=== PATIENT | male | born 1975 | race Caucasian/White ===

== ENCOUNTER 2017-11-04 14:00 | Observation (INO) | payer OTHER, SELFPAY ==
[2017-11-04] VITALS (9 sets, daily range): BP systolic 108–137; BP diastolic 70–86; PULSE 60–80; RESP 14–16; TEMP 36.4–37; O2SAT 95–100; BMI 21.9
--- NOTE | 2017-11-04 14:18 | CT_ITS ---
STUDY: CT BRAIN WITHOUT CONTRAST REASON FOR EXAM: Male, 42 years old. Syncope RADIATION DOSAGE (If Supplied By Facility): CTDIvol = ( 44.99 ) mGy, DLP = ( 812.98 ) mGycm TECHNIQUE: Transaxial CT imaging of the brain was performed without administration of intravenous contrast material. Individualized dose optimization techniques were used for this CT. COMPARISON: 12/25/2012 FINDINGS: There is no acute bleed or infarct. There are normal white matter tracts. The ventricles are normal in configuration. There is no hydrocephalus. The visualized paranasal sinuses are clear. The mastoid air cells are well aerated. There is no skull fracture. CT/Brain/Head without Contrast IMPRESSION: No acute intracranial abnormality. Electronically Signed: Boyd Steiner, at 15:00 EST Tel , Service support ,
--- NOTE | 2017-11-04 14:18 | RAD_ITS ---
STUDY: X-RAY CHEST REASON FOR EXAM: Male, 42 years old. Syncope TECHNIQUE: Frontal view of the chest COMPARISON: 12/25/2012 FINDINGS: The lungs are clear. There are no pleural effusions. There is no pneumothorax. The heart is normal in size. There is a pacemaker in place. The visualized osseous structures are within normal limits. RAD/Chest 1 View (Portable) IMPRESSION: No acute thoracic pathology. Electronically Signed: Boyd Steiner, at 15:41 EST Tel , Service support ,
--- NOTE | 2017-11-04 14:18 | EKG12_ITS ---
Test Reason : SYNCOPE Blood Pressure : / mmHG Vent. Rate : 079 BPM Atrial Rate : 079 BPM P-R Int : 164 ms QRS Dur : 098 ms QT Int : 392 ms P-R-T Axes : 073 057 055 degrees QTc Int : 449 ms Normal sinus rhythm with sinus arrhythmia Normal ECG Confirmed by LEENA WARD ([id number]), editor farm journal ADRIANA NEWTON ([id number] on 11/07/2017 1:21:10 PM Referred By: MANNY Confirmed By:LEENA WARD
--- NOTE | 2017-11-04 14:24 | NURSING ---
CALLED [facility] TO HAVE PATIENT'S PACEMAKER INTERIGATED. REP IS EUGENIO STOUT
[2017-11-04] MEDS: 0.9% Normal Saline 1,000 ML 150 ML IV ×2 (14:32→14:34)
--- NOTE | 2017-11-04 14:33 | NURSING ---
EUGENIO INTERIGATOR , CALLED BACK
[2017-11-04 14:51] LABS: Absolute Lymphocyte Count 2.49 X10^3/ul (0.83-4.51); Absolute Neutrophil Count 6.9 X10^3/uL (2.0-7.7); Basophil# 0.02 X10^3/uL; Basophil% 0.2 % (0-1); Eosinophil# 0.13 X10^3/uL; Eosinophils% 1.3 % (0-5); Hematocrit 44.5 % (40-54); Hemoglobin 14.9 g/dl (13.0-16.5); Lymphocyte # 2.49 X10^3/ul (4.0); Lymphocyte % 24.6 % (19-41); Mean Corp Hgb Conc 33.5 g/gl (32-36); Mean Corpuscular Hgb 30.8 pg (27.0-32.0); Mean Corpuscular Volume 91.9 fL (80-94); Mean Platelet Vol. 9.2 fl (6.2-12.0); Monocyte# 0.56 X10^3/uL; Monocyte% 5.5 % (0-10); Neutrophil # 6.92 X10^3/uL (2.7-7.7); Neutrophil % 68.3 % (47-70); Platelet Count 232 K/mm3 (150-450); RBC Distribution Width CV 13.5 % (11.6-14.6); Red Blood Count 4.84 M/mm3 (4.6-6.2); White Blood Count 10.1 K/mm3 (4.4-11.0)
[2017-11-04 14:52] LABS: POSITIVE COUNT NO; POSITIVE DIFFERENTIAL NO; POSITIVE MORPHOLOGY NO
[2017-11-04 14:54] LABS: Anion Gap 6 (5-15); BUN 15 mg/dL (7-18); BUN/Creat Ratio 17.3 RATIO (10-20); Calcium,Total 8.6 mg/dL (8.5-10.1); Chloride 104 mmol/L (98-107); Creatinine, Serum 0.87 mg/dL (0.70-1.30); EST Glomerular Filtration Rate 103 mL/min (>60); Est Glom Filt Rate - Afr Amer 125 mL/min (>60); Estimated Creatinine Clearance 129.04 ml/min; Glucose 110 mg/dL (74-106); Magnesium 2.3 mg/dL (1.6-2.6); Potassium 3.6 mmol/L (3.5-5.1); Prolactin 13.9 ng/mL; Sodium Level 139 mmol/L (136-145)
--- NOTE | 2017-11-04 15:32 | NURSING ---
[facility]'S INTERIGATOR IN ROOM
--- NOTE | 2017-11-04 15:37 | NURSING ---
DR MARIEL BRYANT
--- NOTE | 2017-11-04 15:37 | ED.VISSUMM ---
- ER Visit Summary Date of Service: 11/04/17 Chief Complaint: [Syncope] History of Present Illness: The patient is a 42 M [presents the emergency department chief complaint of syncopal episode today. Patient states that he has had 2 episodes today of syncope. Patient used to have syncopal episodes until 7 years ago when he was seen at the [facility] and had a pacemaker placed. Since that time patient has not had any syncopal episodes. Patient has not been sick at all. Patient denies any chest pain or shortness of breath. Patient states the first syncopal episode happened this morning while sitting on the porch outside drinking coffee and smoking a cigarette. Patient got an odd sensation of d?j? vu and his girlfriend states that he kind of slumped over and was unresponsive for about 30 seconds. Patient was noted had whole body shaking. Patient did not lose control of bowel or bladder and he did not bite his tongue. Patient was initially slightly disoriented but regained awareness very quickly after the event. Patient had another syncopal episode while eating at [employer] restaurant and again was seated at the time.] Similar type of d?j? vu sensation came over him and passed out for about a minute again with whole body twitching and shaking. Once again there was no loss of bowel or bladder continence and he did not bite his tongue. Physical Examination: [HEENT-PERRLA, EOMI. Cranial nerves II through XII grossly intact. TMs clear. Mucous membranes moist. No adenopathy. Cardiovascular-regular rate and rhythm without murmur or ectopy Lungs-clear to auscultation, chest wall stable without crepitus or subcu emphysema Abdomen-normoactive bowel sounds, soft, nontender, no rebound or rigidity, no peritoneal signs. Neuro xhyr-wimorb-lasb and heel estes testing within normal limits, negative Romberg, negative for drift, fundi benign Extremities-intact ?4, normal range of motion, normal pulses, atraumatic] Test Results: [EKG obtained on arrival shows sinus rhythm with a ventricular rate of 79 bpm with occasional PACs. CBC with differential was normal. Chemistries were normal. Prolactin level was 13.9. Troponin was less than 0.02. CT scan of the brain without contrast showed nothing acute.] Emergency Department Course and Treatment: [We did contact the pacemaker rep from [facility] who presented to the emergency department to interrogate his pacemaker. There were no events on the pacemaker that would explain his syncopal episodes. His battery life is still up to 11 years.] Treatment Plan: [Admit for further workup and evaluation] Disposition: [Admit] Impression: [Syncope-etiology uncertain] This note was generated with [employer] dictation software. It may contain incorrect words, spelling, and punctuation that were not noted in review of the chart prior to signing ED Disposition - Plan for ED Patient: Chief Complaint: Syncope Referrals: Shawn Gonsalez MD [Primary Care Provider] -
--- NOTE | 2017-11-04 15:43 | ED.DCSUM_ITS ---
- ER Visit Summary Date of Service: 11/04/17 Chief Complaint: [Syncope] History of Present Illness: The patient is a 42 M [presents the emergency department chief complaint of syncopal episode today. Patient states that he has had 2 episodes today of syncope. Patient used to have syncopal episodes until 7 years ago when he was seen at the [facility] and had a pacemaker placed. Since that time patient has not had any syncopal episodes. Patient has not been sick at all. Patient denies any chest pain or shortness of breath. Patient states the first syncopal episode happened this morning while sitting on the porch outside drinking coffee and smoking a cigarette. Patient got an odd sensation of d?j? vu and his girlfriend states that he kind of slumped over and was unresponsive for about 30 seconds. Patient was noted had whole body shaking. Patient did not lose control of bowel or bladder and he did not bite his tongue. Patient was initially slightly disoriented but regained awareness very quickly after the event. Patient had another syncopal episode while eating at [employer] restaurant and again was seated at the time.] Similar type of d?j? vu sensation came over him and passed out for about a minute again with whole body twitching and shaking. Once again there was no loss of bowel or bladder continence and he did not bite his tongue. Physical Examination: [HEENT-PERRLA, EOMI. Cranial nerves II through XII grossly intact. TMs clear. Mucous membranes moist. No adenopathy. Cardiovascular-regular rate and rhythm without murmur or ectopy Lungs-clear to auscultation, chest wall stable without crepitus or subcu emphysema Abdomen-normoactive bowel sounds, soft, nontender, no rebound or rigidity, no peritoneal signs. Neuro jjsg-cbpirs-jckc and heel estes testing within normal limits, negative Romberg, negative for drift, fundi benign Extremities-intact ?4, normal range of motion, normal pulses, atraumatic] Test Results: [EKG obtained on arrival shows sinus rhythm with a ventricular rate of 79 bpm with occasional PACs. CBC with differential was normal. Chemistries were normal. Prolactin level was 13.9. Troponin was less than 0.02. CT scan of the brain without contrast showed nothing acute.] Emergency Department Course and Treatment: [We did contact the pacemaker rep from [facility] who presented to the emergency department to interrogate his pacemaker. There were no events on the pacemaker that would explain his syncopal episodes. His battery life is still up to 11 years.] Treatment Plan: [Admit for further workup and evaluation] Disposition: [Admit] Impression: [Syncope-etiology uncertain] This note was generated with [employer] dictation software. It may contain incorrect words, spelling, and punctuation that were not noted in review of the chart prior to signing ED Disposition - Plan for ED Patient: Chief Complaint: Syncope Referrals: Shawn Gonsalez MD [Primary Care Provider] -
--- NOTE | 2017-11-04 17:54 | PCM.HP.STD ---
Problem List (1) Syncope Status: Acute Qualifiers: Syncope type: unspecified Qualified Code(s): R55 - Syncope and collapse History of Present Illness Date of Admission: 11/04/17 Chief Complaint: Syncope The patient is a 42 year old M who was seen in the emergency room at [facility] with a complaint of 2 syncopal episodes today that were witnessed by his girlfriend. Patient states he was seated during both episodes, his girlfriend states that he became glassy eyed and slumped forward with his head down and had some tremors, these episodes lasted 30 seconds for the first episode and over a minute for the second episode. They were not accompanied by any somnolence similar to a postictal period. Patient states that 7 years ago he was seen in the emergency room here after suffering a syncopal episode, at that time it was noted that on the monitor in the ER that he had periods of asystole and he was transferred to [facility] where pacemaker was inserted. Patient has not had any continuous follow-up with a emt i/85 since that time, he briefly saw Dr. Hernandez. Evaluation in the emergency room included labs which showed a normal prolactin level, CBC and chemistry panel. Magnesium and troponin were also unremarkable. Patient had a CT of the brain which was negative for acute process, chest x-ray was performed and this was unremarkable. Patient's pacemaker was interrogated in the emergency room and there was no evidence of any arrhythmias or dysfunction. Patient will be placed in observation status for syncope, I discussed the case with neurology and an EEG will be obtained and he will be seen in consultation by neurology. Past Medical History Allergies No Known Allergies Allergy (Verified 11/04/17 14:01) Home Medications: Ambulatory Orders Medication Instructions Recorded Mesalamine [Pentasa] 500 mg PO 4X/DAY 11/04/17 Surgical History: - - Pacemaker insertion Psychiatric History: No pertinent psych hx Lives: Alone Smoking Status: Current every day smoker Tobacco Use: Cigarettes Alcohol: None Drugs: None - *Family History Maternal History Items: - - Ulcerative colitis Paternal History Items: No pertinent history Review of Systems Constitutional: Denies: Anorexia, Chills, Fever, Night Sweats, Malaise, Weakness, Weight Change, Fatigue Eyes: Denies: Blurred vision, Cataracts, Conjunctivae Inflammation, Double vision, Drainage HEENT: Denies: Difficulty Swallowing, Dysphasia, Ear Pain, Eye Pain, Head Aches, Hearing Changes, Nasal bleeding, Nasal Congestion, Post Nasal Drip Cardiovascular: Reports: Syncope. Denies: Chest Pain, Claudication, Chest Pressure, Chest Tightness, Edema, Heaviness, Orthopnea, Palpitations, Paroxysmal Noc. Dyspnea Respiratory: Denies: Cough, Hemoptysis, Pleuritic Pain, Shortness of Breath, Shortness of breath at rest, Shortness of breath upon exertion, Sputum production Gastrointestinal: Denies: Abdominal Pain, Constipation, Diarrhea, Hematemesis, Hematochezia, Nausea, Melena, Vomiting Genitourinary: Denies: Dysuria, Frequency, Hematuria, Hesitancy, Nocturia, Retention, Urgency Musculoskeletal: Denies: Back Pain, Foot Pain, Hand Pain, Joint Pain, Joint stiffness, Joint swelling, Joint Tenderness, Leg Pain Skin: Denies: Dryness, Jaundice, Pruritis, Rash Neurological: Denies: Blurred vision, Double vision, Change in Speech, Slurred speech, Difficulty swallowing, Focal weakness, Headaches, Incoordination, Numbness, Tingling Psychiatric: Denies: Anxiety, Depression, Homicidal Ideations, Suicidal Ideations Endocrine: Denies: Change in Body Habitus, Heat/ Cold Intolerance, Polydipsia, Polyuria Hematologic/ Lymphatic: Denies: Adenopathy, Anemia, Easy Bruising, Easy Bleeding, Petechiae, Purpura VTE Information - Inpt Only VTE Present on Admission: No VTE Mechan Device Prophylaxis: None VTE Pharm Prophylaxis ordered?: No Reason prophylaxis not ordered:: Treatment Not Indicated - low risk for VTE Patient Problems: Active and Suspected Problems Syncope (Acute) - Physical Exam General: Alert, Oriented x3, Cooperative, No apparent distress, Well developed, Well nourished HEENT: Atraumatic, PERRLA, EOMI, Normocephalic Oral: Moist Mucosa Neck: Supple, No JVD, Negative Carotid Bruits, No Nuchal Rigidity, Trachea Midline, Thyroid Normal Size and Texture Lungs: Clear to auscultation, Normal air movement, No rhonchi, No wheeze, No rales Cardiovascular: Regular rate, Regular Rhythm, Normal S1, Normal S2, No murmurs, No Ectopic Activity, PMI Normal, No rub noted, No Gallop Abdomen: Bowel Sounds Present, Soft, Non Tender, Non-Distended, No hernias noted Extremities: No clubbing, No cyanosis, No edema, Capillary Refill Less than 3 Seconds Skin: No rashes, No breakdown Musculoskeletal: No Tenderness to Palpation of Joints or Extremities Neurological: Cranial nerves II-XII grossly intact, Neuro grossly intact, Muscle tone normal, Sensory exam intact to light touch and pain, Coordination normal Psych/Mental Status: Normal Affect, Appropriate, Alert and oriented to time, place, person, mood and affect Vital Signs Temp Pulse Resp BP Pulse Ox 98.2 F 64 16 108/74 97 11/04/17 17:01 11/04/17 17:01 11/04/17 17:01 11/04/17 17:01 11/04/17 17:01 Oxygen Delivery Method Room Air Weight: 81.556 kg Body Mass Index (BMI) 21.9 Assessment/Plan Active and Suspected Problems Syncope (Acute) #1 syncope-etiology unclear at this point, patient will be ice and observation status, he will be seen by neurology, he will have an EEG performed. Patient will be monitored on telemetry #2 Crohn's disease-[facility] Code Visit OBSV E&M: 67808 Initial observation care L3
--- NOTE | 2017-11-04 18:05 | HP.PCM_ITS ---
Problem List (1) Syncope Status: Acute Qualifiers: Syncope type: unspecified Qualified Code(s): R55 - Syncope and collapse History of Present Illness Date of Admission: 11/04/17 Chief Complaint: Syncope The patient is a 42 year old M who was seen in the emergency room at [facility] with a complaint of 2 syncopal episodes today that were witnessed by his girlfriend. Patient states he was seated during both episodes , his girlfriend states that he became glassy eyed and slumped forward with his head down and had some tremors, these episodes lasted 30 seconds for the first episode and over a minute for the second episode. They were not accompanied by any somnolence similar to a postictal period. Patient states that 7 years ago he was seen in the emergency room here after suffering a syncopal episode, at that time it was noted that on the monitor in the ER that he had periods of asystole and he was transferred to [facility] where pacemaker was inserted. 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 Hernandez. Evaluation in the emergency room included labs which showed a normal prolactin level, CBC and chemistry panel. Magnesium and troponin were also unremarkable. Patient had a CT of the brain which was negative for acute process, chest x-ray was performed and this was unremarkable. Patient's pacemaker was interrogated in the emergency room and there was no evidence of any arrhythmias or dysfunction. Patient will be placed in observation status for syncope, I discussed the case with neurology and an EEG will be obtained and he will be seen in consultation by neurology. Past Medical History Allergies No Known Allergies Allergy (Verified 11/04/17 14:01) Home Medications: Ambulatory Orders Medication Instructions Recorded Mesalamine [Pentasa] 500 mg PO 4X/DAY 11/04/17 Surgical History: - - Pacemaker insertion Psychiatric History: No pertinent psych hx Lives: Alone Smoking Status: Current every day smoker Tobacco Use: Cigarettes Alcohol: None Drugs: None - *Family History Maternal History Items: - - Ulcerative colitis Paternal History Items: No pertinent history Review of Systems Constitutional: Denies: Anorexia, Chills, Fever, Night Sweats, Malaise, Weakness , Weight Change, Fatigue Eyes: Denies: Blurred vision, Cataracts, Conjunctivae Inflammation, Double vision, Drainage HEENT: Denies: Difficulty Swallowing, Dysphasia, Ear Pain, Eye Pain, Head Aches , Hearing Changes, Nasal bleeding, Nasal Congestion, Post Nasal Drip Cardiovascular: Reports: Syncope. Denies: Chest Pain, Claudication, Chest Pressure, Chest Tightness, Edema, Heaviness, Orthopnea, Palpitations, Paroxysmal Noc. Dyspnea Respiratory: Denies: Cough, Hemoptysis, Pleuritic Pain, Shortness of Breath, Shortness of breath at rest, Shortness of breath upon exertion, Sputum production Gastrointestinal: Denies: Abdominal Pain, Constipation, Diarrhea, Hematemesis, Hematochezia, Nausea, Melena, Vomiting Genitourinary: Denies: Dysuria, Frequency, Hematuria, Hesitancy, Nocturia, Retention, Urgency Musculoskeletal: Denies: Back Pain, Foot Pain, Hand Pain, Joint Pain, Joint stiffness, Joint swelling, Joint Tenderness, Leg Pain Skin: Denies: Dryness, Jaundice, Pruritis, Rash Neurological: Denies: Blurred vision, Double vision, Change in Speech, Slurred speech, Difficulty swallowing, Focal weakness, Headaches, Incoordination, Numbness, Tingling Psychiatric: Denies: Anxiety, Depression, Homicidal Ideations, Suicidal Ideations Endocrine: Denies: Change in Body Habitus, Heat/ Cold Intolerance, Polydipsia, Polyuria Hematologic/ Lymphatic: Denies: Adenopathy, Anemia, Easy Bruising, Easy Bleeding , Petechiae, Purpura VTE Information - Inpt Only VTE Present on Admission: No VTE Mechan Device Prophylaxis: None VTE Pharm Prophylaxis ordered?: No Reason prophylaxis not ordered:: Treatment Not Indicated - low risk for VTE Patient Problems: Active and Suspected Problems Syncope (Acute) - Physical Exam General: Alert, Oriented x3, Cooperative, No apparent distress, Well developed, Well nourished HEENT: Atraumatic, PERRLA, EOMI, Normocephalic Oral: Moist Mucosa Neck: Supple, No JVD, Negative Carotid Bruits, No Nuchal Rigidity, Trachea Midline, Thyroid Normal Size and Texture Lungs: Clear to auscultation, Normal air movement, No rhonchi, No wheeze, No rales Cardiovascular: Regular rate, Regular Rhythm, Normal S1, Normal S2, No murmurs, No Ectopic Activity, PMI Normal, No rub noted, No Gallop Abdomen: Bowel Sounds Present, Soft, Non Tender, Non-Distended, No hernias noted Extremities: No clubbing, No cyanosis, No edema, Capillary Refill Less than 3 Seconds Skin: No rashes, No breakdown Musculoskeletal: No Tenderness to Palpation of Joints or Extremities Neurological: Cranial nerves II-XII grossly intact, Neuro grossly intact, Muscle tone normal, Sensory exam intact to light touch and pain, Coordination normal Psych/Mental Status: Normal Affect, Appropriate, Alert and oriented to time, place, person, mood and affect Vital Signs Temp Pulse Resp BP Pulse Ox 98.2 F 64 16 108/74 97 11/04/17 17:01 11/04/17 17:01 11/04/17 17:01 11/04/17 17:01 11/04/17 17:01 Oxygen Delivery Method Room Air Weight: 81.556 kg Body Mass Index (BMI) 21.9 Assessment/Plan Active and Suspected Problems Syncope (Acute) #1 syncope-etiology unclear at this point, patient will be ice and observation status, he will be seen by neurology, he will have an EEG performed. Patient will be monitored on telemetry #2 Crohn's disease-[facility] on [facility] Code Visit OBSV E&M: 36514 Initial observation care L3
[2017-11-04] MEDS: Acetaminophen 325 MG Tablet 650 MG PO (21:21)
--- NOTE | 2017-11-05 00:09 | NURSING ---
This RN is taking over care for Bertin Berry RN
[2017-11-05 03:00] VITALS: BP 101/63; PULSE 60; RESP 16; TEMP 36.6; O2SAT 95
[2017-11-05 03:04] VITALS: PULSE 68
[2017-11-05 07:12] VITALS: PULSE 67
[2017-11-05 09:10] VITALS: BP 104/70; PULSE 67; RESP 16; TEMP 36.6; O2SAT 96
[2017-11-05] MEDS: Acetaminophen 325 MG Tablet 650 MG PO (09:21)
[2017-11-05 11:08] VITALS: PULSE 86
--- NOTE | 2017-11-05 11:30 | CON.PCM_ITS ---
Reason for Consult Date of Consultation: 11/05/17 Reason for Consultation: syncope vs sz History of Present Illness: The patient is a 42 year old M who presents after two spells yesterday witnessed by girlfriend, he states he gets a roz vu sensation, followed by a flood of anxiety then everything goes black. reports two spells yesterday, then a similar spell this am at 5:30am while in bed in hospital, yesterday he was sitting for both occasions. spells lasted about 30 sec, then completely back to normal except for hot, sweaty, pale, headache. also nausea. otherwise well recently with no recent illness or med changes. girlfriend witnessed both spells, mild brief shaking. no tongue biting or incontinence. no muscle soreness or abnormalities. no coughing. drinks 8 oz glasses of h20 per day. Per admission H&P:The patient is a 42 year old M who was seen in the emergency room at [facility] with a complaint of 2 syncopal episodes today that were witnessed by his girlfriend. Patient states he was seated during both episodes, his girlfriend states that he became glassy eyed and slumped forward with his head down and had some tremors, these episodes lasted 30 seconds for the first episode and over a minute for the second episode. They were not accompanied by any somnolence similar to a postictal period. Patient states that 7 years ago he was seen in the emergency room here after suffering a syncopal episode, at that time it was noted that on the monitor in the ER that he had periods of asystole and he was transferred to [facility] where pacemaker was inserted. Patient has not had any continuous follow- up with a pharmacy operations specialist since that time, he briefly saw Dr. Hernandez. Evaluation in the emergency room included labs which showed a normal prolactin level, CBC and chemistry panel. Magnesium and troponin were also unremarkable. Patient had a CT of the brain which was negative for acute process, chest x-ray was performed and this was unremarkable. Patient's pacemaker was interrogated in the emergency room and there was no evidence of any arrhythmias or dysfunction. Patient will be placed in observation status for syncope, I discussed the case with neurology and an EEG will be obtained and he will be seen in consultation by neurology. Past Medical History Allergies No Known Allergies Allergy (Verified 11/04/17 14:01) Home Medications: Ambulatory Orders Medication Instructions Recorded Mesalamine [Pentasa] 500 mg PO 4X/DAY 11/04/17 Surgical History: - - Pacemaker insertion Psychiatric History: No pertinent psych hx Lives: Alone Smoking Status: Current every day smoker Tobacco Use: Cigarettes Alcohol: None Drugs: None - *Family History Maternal History Items: - - Ulcerative colitis Paternal History Items: No pertinent history Review of Systems Constitutional: Denies: Chills, Fever, Weight Change HEENT: Denies: Head Aches, Sinus Congestion, Sinus Drainage Cardiovascular: Denies: Chest Pain, Palpitations Respiratory: Denies: Cough, Shortness of breath at rest, Sputum production Gastrointestinal: Denies: Abdominal Pain, Nausea, Vomiting Genitourinary: Denies: Dysuria Musculoskeletal: Denies: Joint Pain, Joint Tenderness Skin: Denies: Rash, Wounds Neurological: Denies: Numbness, Tingling, Focal weakness Psychiatric: Denies: Anxiety, Depression, Homicidal Ideations, Suicidal Ideations Hematologic/ Lymphatic: Denies: Easy Bruising, Easy Bleeding Patient Problems: Active and Suspected Problems Syncope (Acute) - Physical Exam General: Alert, Oriented x3, Cooperative HEENT: Atraumatic, PERRLA, EOMI, Normocephalic Neck: Supple, No JVD, Negative Carotid Bruits Lungs: Clear to auscultation, Normal air movement Cardiovascular: Regular rate, No murmurs Abdomen: Bowel Sounds Present, Soft, Non Tender Extremities: No edema, Capillary Refill Less than 3 Seconds Skin: No rashes, No breakdown Musculoskeletal: No Tenderness to Palpation of Joints or Extremities Neurological: Cranial nerves II-XII grossly intact Psych/Mental Status: Normal Affect, Appropriate Vital Signs Temp Pulse Resp BP Pulse Ox 36.6 C 86 16 104/70 96 11/05/17 09:10 11/05/17 11:08 11/05/17 09:10 11/05/17 09:10 11/05/17 09:10 Oxygen Delivery Method Room Air Weight: 81.556 kg Body Mass Index (BMI) 21.9 Intake and Output for Last 24 Hours 11/03/17 11/04/17 11/05/17 23:59 23:59 23:59 Intake Total 800 / 800 Balance 800 / 800 Current Home Med List Medication Instructions Recorded Confirmed Type Mesalamine [Pentasa] 500 mg PO 4X/DAY 11/04/17 11/04/17 History Current Medications Generic Name Dose Route Start Last Admin Trade Name Freq PRN Reason Stop Dose Admin Acetaminophen 650 mg 11/04/17 16:56 11/05/17 09:21 Tylenol PO 650 mg Q6H PRN PRN Administration Mild Pain (1-3)/Temp > 100.7 F Mesalamine 500 mg 11/04/17 18:00 Pentasa PO 4X/DAY OSCAR Nicotine 14 mg 11/04/17 18:30 11/05/17 09:21 Nicoderm Cq ([facility]) TRANSDERM. 14 mg DAILY OSCAR Administration Assessment/Plan Active and Suspected Problems Syncope (Acute) syncope vs sz: will review eeg limit free h20 intake offer aed, although most features of this do not sound epileptiform. pt defers at this point ok to dc from neuro standpoint recommend tobacco cessation
--- NOTE | 2017-11-05 13:20 | EEG ---
- Electroencephalogram This is an 18 channel encephalogram performed on this 42-year-old male with a history of spells. 18 channel electroencephalogram is performed utilizing the International 10-20 electrode placement protocol. Hyperventilation, photic stimulation and EKG rhythm strip was also utilized. Patient remained awake throughout the recording without lateralizing or epileptiform changes. Background activity is 10 Hz symmetrically in the posterior leads which attenuates with eye opening. Hyperventilation is performed for 4 minutes with good effort with no lateralizing or epileptiform changes. The post hyperventilatory phase was unremarkable. Otic stimulation generates a normal symmetric driving response in the posterior leads and EKG rhythm strip was sinus throughout. Impression: Normal awake electroencephalogram.
--- NOTE | 2017-11-05 14:24 | PCM.DC ---
- Discharge Diagnoses Current Active Problems: Current Active and Chronic Problems Syncope (Acute) You will use the following diet at home:: No restrictions Your food should be the consistency of: Regular Your liquids should be the consistency of: Regular/Thin Discharge Activity: Return to Normal Activity Weight Bearing Status: Full weight bearing Allergies/Adverse Reactions: Allergies No Known Allergies Allergy (Verified 11/04/17 14:01) Medications to take at Discharge Mesalamine [Pentasa] 500 mg PO 4X/DAY 11/04/17 Primary Care Physician: Shawn Gonsalez MD [Primary Care Provider] - Please follow up with your Primary Care Physician in: 1-2 weeks
[2017-11-05 14:37] VITALS: PULSE 70; RESP 16; TEMP 36.9; O2SAT 97
--- NOTE | 2017-11-05 21:43 | PCM.DC.SUM ---
Discharge Date and Diagnosis Date of Admission: 11/04/17 Date of Discharge: 11/05/17 - Primary Discharge Diagnosis #1 syncope-etiology unknown #2 Crohn's disease #3 sick sinus syndrome with previous pacemaker implantation Hospital Course and Treatment Operations: None Procedures: Electroencephalogram Summary of Care Provided: The patient is a 42 year old M seen in the emergency room at [facility] after suffering 2 syncopal episodes in the same day that were witnessed by his girlfriend. Patient was briefly unconscious-the first episode lasted about 30 seconds, the second episode lasted approximately a little more than a minute. There was no clonic tonic activity noted and the patient was seated during these episodes. Workup in the emergency room was unremarkable including a CT of the brain and labs. Patient underwent pacemaker interrogation in the emergency room which resulted in information revealing that the patient's pacemaker was appropriately functioning and that he had no arrhythmias. Patient was placed in observation status on PCU, he was observed on telemetry and had no significant arrhythmias-only periods of atrial pacing followed by intrinsic ventricular beats. Patient was seen in consultation by neurology and an EEG was done, EEG was unremarkable. Neurology felt that the patient could be discharged home with no activity limitations but did not have an exact reason why the patient had his symptoms. Patient follows up every [address] Hernandez who is a accounts payable representative, he has been urged to see his PCP in 1-2 weeks and follow-up with Dr. Hernandez as scheduled. On 11/05/17, patient was seen and examined felt in stable condition for discharge home Discharge Activity: Return to Normal Activity Weight Bearing Status: Full weight bearing Home Medications: Medications to take at Discharge Mesalamine [Pentasa] 500 mg PO 4X/DAY 11/04/17 Primary Care Physician: Shawn Gonsalez MD [Primary Care Provider] - Please follow up with your Primary Care Physician in: 1-2 weeks Disposition: Home Minutes spent on discharge:: 25 Patient Condition:: Stable Meaningful Use Info Meaningful Use Diagnoses (Choose all that apply): None applicable Code Visit OBSV E&M: 94462 Observation care discharge
--- NOTE | 2017-11-05 21:47 | DS.PCM_ITS ---
Discharge Date and Diagnosis Date of Admission: 11/04/17 Date of Discharge: 11/05/17 - Primary Discharge Diagnosis #1 syncope-etiology unknown #2 Crohn's disease #3 sick sinus syndrome with previous pacemaker implantation Hospital Course and Treatment Operations: None Procedures: Electroencephalogram Summary of Care Provided: The patient is a 42 year old M seen in the emergency room at [facility] after suffering 2 syncopal episodes in the same day that were witnessed by his girlfriend. Patient was briefly unconscious-the first episode lasted about 30 seconds, the second episode lasted approximately a little more than a minute. There was no clonic tonic activity noted and the patient was seated during these episodes. Workup in the emergency room was unremarkable including a CT of the brain and labs. Patient underwent pacemaker interrogation in the emergency room which resulted in information revealing that the patient's pacemaker was appropriately functioning and that he had no arrhythmias. Patient was placed in observation status on PCU, he was observed on telemetry and had no significant arrhythmias-only periods of atrial pacing followed by intrinsic ventricular beats. Patient was seen in consultation by neurology and an EEG was done, EEG was unremarkable. Neurology felt that the patient could be discharged home with no activity limitations but did not have an exact reason why the patient had his symptoms. Patient follows up every [address] Hernandez who is a sculpture instructor, he has been urged to see his PCP in 1-2 weeks and follow-up with Dr. Hernandez as scheduled. On 11/05/17, patient was seen and examined felt in stable condition for discharge home Discharge Activity: Return to Normal Activity Weight Bearing Status: Full weight bearing Home Medications: Medications to take at Discharge Mesalamine [Pentasa] 500 mg PO 4X/DAY 11/04/17 Primary Care Physician: Shawn Gonsalez MD [Primary Care Provider] - Please follow up with your Primary Care Physician in: 1-2 weeks Disposition: Home Minutes spent on discharge:: 25 Patient Condition:: Stable Meaningful Use Info Meaningful Use Diagnoses (Choose all that apply): None applicable Code Visit OBSV E&M: 42933 Observation care discharge
== END 2017-11-05 14:24 | disposition home or self-care (01) ==
LOC: ED 15:06 → PCU 16:16
PROVIDERS: Admitting Provider Internal Medicine; Emergency Provider Emergency Medicine; Family Provider Family Medicine; PCP Family Medicine; Visit Provider Internal Medicine
DX: R55 Syncope and collapse (principal); F17.210 Nicotine dependence, cigarettes, uncomplicated; Z95.0 Presence of cardiac pacemaker; K50.90 Crohn's disease, unspecified, without complications; N28.89 Other specified disorders of kidney and ureter; Z79.899 Other long term (current) drug therapy
CPT/HCPCS: 70450; 71045; 80048; 83735; 84146; 84484; 85025; 93005; 95819; 97802; 99218; 99284; 99406; G0378